=== PATIENT | male | born 2005 | race Caucasian/White ===

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

== ENCOUNTER 2023-04-23 21:50 | Emergency (ER) | payer OTHER ==
[2023-04-23 21:59] VITALS: BP 116/66; PULSE 79; RESP 18; TEMP 97.8; BMI 18.6
== END 2023-04-23 22:40 | disposition left against medical advice (07) ==
LOC: JER 21:50
DX: R11.2 Nausea with vomiting, unspecified (principal); R10.9 Unspecified abdominal pain; R19.7 Diarrhea, unspecified; R55 Syncope and collapse
CPT/HCPCS: 99281-25

== ENCOUNTER 2023-04-27 14:58 | Emergency (ER) | payer OTHER ==
[2023-04-27 15:33] VITALS: BP 100/65; PULSE 65; RESP 18; TEMP 98.4; BMI 19.3
[2023-04-27] MEDS ORDERED: KETOROLAC TROMETHAMINE 15 MG/ML VIAL IVPUSH ONE (15:52)
[2023-04-27] MEDS ORDERED: KETOROLAC TROMETHAMINE 15 MG/ML VIAL ONE (17:19)
[2023-04-27 17:44] LABS: EPI CELLS 6 /uL (0-25.1); HYALINE CASTS 0 /uL (0-3.1); PH,URINE 7.5 (5.0-8.0); URINE APPEARANCE TURBID; URINE BILIRUBIN NEGATIVE (NEGATIVE); URINE COLOR ORANGE; URINE GLUCOSE (UA) NEGATIVE (NEGATIVE); URINE KETONE NEGATIVE (NEGATIVE); URINE LEUK ESTERASE 2+ (NEGATIVE); URINE NITRITE POSITIVE (NEGATIVE); URINE PROTEIN 2+ (NEGATIVE); URINE RBC 14557 /uL (0-23.9); URINE WBC 1906 /uL (0-25.8)
[2023-04-27] MEDS ORDERED: CEPHALEXIN MONOHYDRATE 500 MG CAPSULE (UD) PO ONE (18:05)
[2023-04-27] MEDS ORDERED: CEPHALEXIN MONOHYDRATE 500 MG CAPSULE (UD) ONE (19:11)
[2023-04-28 00:05] LABS: URINE BACTERIA 1188.3 /uL (0-1359)
== END 2023-04-27 19:19 | disposition home or self-care (01) ==
LOC: JER 14:58
PROC: 3E0333Z Introduction of Anti-inflammatory into Peripheral Vein, Percutaneous Approach (ICD-10-PCS; principal; 2023-04-27)
DX: N30.91 Cystitis, unspecified with hematuria (principal); R30.0 Dysuria; R11.0 Nausea; M54.50 Low back pain, unspecified; R10.9 Unspecified abdominal pain
CPT/HCPCS: 36415; 74176-TC; 81003; 87086; 87186; 87491; 87591; 99284-25

== ENCOUNTER 2024-02-10 07:55 | Emergency (ER) | payer OTHER ==
[2024-02-10 08:02] VITALS: BP 119/58; PULSE 68; RESP 20; TEMP 98.6
[2024-02-10] MEDS ORDERED: ACETAMINOPHEN 325 MG TABLET (FP) ONE (11:04)
[2024-02-10] MEDS: ACETAMINOPHEN 500 MG TABLET (FP) PO ONE (11:08)
[2024-02-10] MEDS ORDERED: AZITHROMYCIN 500 MG TABLET ONE (11:48)
[2024-02-10] MEDS ORDERED: AMOX TR/POT CLAV 875MG/125MG TABLETS (FP) ONE (11:48)
[2024-02-10] MEDS: AMOX TR/POT CLAV 875MG/125MG TABLETS (FP) PO ONE (11:49)
[2024-02-10] MEDS: AZITHROMYCIN 250 MG TABLET PO ONE (11:49)
== END 2024-02-10 12:16 | disposition home or self-care (01) ==
LOC: JER 07:55 → JERFT 07:55 → JER 12:16
DX: R05.9 Cough, unspecified (principal); J18.9 Pneumonia, unspecified organism; R11.0 Nausea; Z20.822 Contact with and (suspected) exposure to COVID-19
CPT/HCPCS: 0241U-QW; 71046-TC-FY; 99284-25